=== PATIENT | male | born 1990 | race Hispanic/Latino ===

== ENCOUNTER 2018-06-13 15:01 | Emergency (ER) | payer MEDICAID ==
[2018-06-13] MEDS ORDERED: Sodium Chloride 0.9% 1,000 ML IV STA (15:36)
[2018-06-13 16:22] LABS: ALB/GLOB RATIO 1.5 (1.0-2.1); ALBUMIN 4.2 g/dL (3.5-5.0); ALT/SGPT 28 U/L (21-72); AST/SGOT 22 U/L (17-59); BLOOD UREA NITROGEN 14 mg/dl (9-20); CALCIUM 8.6 mg/dL (8.4-10.2); GFR AFRICAN-AMERICAN > 60; GFR NON-AFRICAN AMERICAN > 60
[2018-06-13 16:25] LABS: BASO % 0.2 % (0.0-2.0); EOS % 0.1 % (0.0-4.0); HEMOGLOBIN 14.9 g/dL (12.0-18.0); LYMPH # 0.6 K/uL (1.0-4.3); LYMPH % 8.3 % (20.0-40.0); MEAN CELL VOLUME 88.8 fl (80.0-94.0); MEAN CORPUSCULAR HEMOGLOBIN 29.9 pg (27.0-31.0); MEAN CORPUSCULAR HGB CONC 33.7 g/dL (33.0-37.0); MEAN PLATELET VOLUME 8.8 fl (7.2-11.7); MONO # 0.3 K/uL (0.0-0.8); MONO % 4.4 % (0.0-10.0); NEUT # 6.5 K/uL (1.8-7.0); PLATELET COUNT 163 K/uL (130-400); RBC 4.99 Mil/uL (4.40-5.90); RED CELL DISTRIBUTION WIDTH 13.8 % (11.5-14.5); WHITE BLOOD COUNT 7.4 K/uL (4.8-10.8)
--- NOTE | 2018-06-13 16:30 | ED PDOC ---
HPI:Nausea, Vomiting, Diarrhea Time Seen by Provider: 06/13/18 15:23 Chief Complaint (Nursing): Fever Chief Complaint (Provider): Diarrhea History Per: Patient History/Exam Limitations: no limitations Additional Complaint(s): Pt reports multiple episodes of nonbloody diarrhea since 6:30 AM today, associated with crampy abdominal pain and subjective fever. Pt had food poisoning while visiting [facility] one month ago but symptoms had resolved. Denies nausea, vomiting, dysuria, hematuria. Pt last ate roast beef sandwich last night. Past Medical History Reviewed: Nursing Documentation, Vital Signs Vital Signs: Last Vital Signs Temp 99.4 F 06/13/18 15:05 Pulse 63 06/13/18 15:05 Resp 18 06/13/18 15:05 BP 123/75 06/13/18 15:05 Pulse Ox 97 06/13/18 15:05 - Medical History PMH: No Chronic Diseases - Family History Family History: States: Unknown Family Hx - Living Arrangements Living Arrangements: With Family - Social History Current smoker - smoking cessation education provided: No Alcohol: None - Immunization History Hx Tetanus Toxoid Vaccination: No Hx Influenza Vaccination: No Hx Pneumococcal Vaccination: No - Home Medications Home Medications: Ambulatory Orders Medication Instructions Recorded Hydrocodone/Acetaminophen [Vicodin 1 each PO Q6 #12 tablet 02/05/16 5-300 mg Tablet] Ciprofloxacin [Cipro] 500 mg PO BID #19 tab 06/13/18 Dicyclomine [Bentyl] 20 mg PO QID PRN #10 tab 06/13/18 metroNIDAZOLE [Flagyl] 500 mg PO TID #29 tab 06/13/18 - Allergies Allergies/Adverse Reactions: Allergies Allergy/AdvReac Type Severity Reaction Status Date / Time No Known Allergies Allergy Verified 06/13/18 15:05 Review of Systems Constitutional: Positive for: Fever (Subjective). Negative for: Chills, Weakness, Malaise Cardiovascular: Negative for: Chest Pain Respiratory: Negative for: Cough, Shortness of Breath Gastrointestinal: Positive for: Abdominal Pain, Diarrhea. Negative for: Nausea , Vomiting, Melena, Hematochezia, Hematemesis, Rectal Pain Genitourinary Male: Negative for: Dysuria, Hematuria Musculoskeletal: Negative for: Back Pain Skin: Negative for: Rash, Lesions Neurological: Negative for: Headache, Dizziness Physical Exam - Reviewed Nursing Documentation Reviewed: Yes Vital Signs Reviewed: Yes - Physical Exam Appears: Positive for: Well, No Acute Distress Skin: Positive for: Normal Color, Warm, Dry Eye Exam: Positive for: Normal appearance, EOMI, PERRL Cardiovascular/Chest: Positive for: Regular Rate, Rhythm Respiratory: Positive for: Normal Breath Sounds. Negative for: Rales, Rhonchi, Wheezing Gastrointestinal/Abdominal: Positive for: Normal Exam, Bowel Sounds, Soft. Negative for: Tenderness, Guarding, Rebound Back: Positive for: Normal Inspection Extremity: Positive for: Normal ROM Neurologic/Psych: Positive for: Alert, Oriented - Laboratory Results Result Diagrams: 06/13/18 16:08 06/13/18 16:08 - ECG O2 Sat by Pulse Oximetry: 97 Medical Decision Making Medical Decision Makin yo male with diarrhea and abdominal pain. - labs - CT abd/pelvis - IVF - Bentyl Accession No. : [id number] Patient Name / ID : EDMAR LAMBERT / [id number] Exam Date : 06/13/2018 16:42:04 ( Approved ) Study Comment : Sex / Age : M / 27Y Creator : Dale Cornell MD Dictator : Dale Cornell MD Steel Welder : Head Control Clerk : Dale Cornell MD Approver2 : Report Date : 06/13/2018 17:29:19 My Comment : Date of service: 06/13/2018 PROCEDURE: CT Abdomen and Pelvis with contrast HISTORY: Abd pain, diarrhea COMPARISON: None. TECHNIQUE: Contrast dose: 95 mL Omnipaque 300 Radiation dose: Total exam DLP = 346.6 mGy-cm. This CT exam was performed using one or more of the following dose reduction techniques: Automated exposure control, adjustment of the mA and/or kV according to patient size, and/or use of iterative reconstruction technique. FINDINGS: LOWER THORAX: Unremarkable. LIVER: Unremarkable. No gross lesion or ductal dilatation. GALLBLADDER AND BILE DUCTS: Unremarkable. PANCREAS: Unremarkable. No gross lesion or ductal dilatation. SPLEEN: Unremarkable. ADRENALS: Unremarkable. No mass. KIDNEYS AND URETERS: Unremarkable. No hydronephrosis. No solid mass. VASCULATURE: Unremarkable. No aortic aneurysm. BOWEL: Thickening of the ascending colon, transverse and proximal descending colon. No obstruction. No gross mural thickening. APPENDIX: Normal appendix. PERITONEUM: Unremarkable. No free fluid. No free air. LYMPH NODES: Unremarkable. No enlarged lymph nodes. BLADDER: Unremarkable. REPRODUCTIVE: Unremarkable. BONES: No acute fracture. OTHER FINDINGS: None. IMPRESSION: Thickening from the distal ascending colon to the proximal descending colon compatible with infectious/inflammatory colitis. Disposition - Clinical Impression Clinical Impression: Colitis - Disposition Referrals: Helen Hodge APN [Family Provider] - Sixto Romo MD, PhD [Staff Provider] - Disposition: Routine/Home Disposition Time: 18:50 Condition: STABLE Prescriptions: Ciprofloxacin [Cipro] 500 mg PO BID #19 tab Dicyclomine [Bentyl] 20 mg PO QID PRN #10 tab PRN Reason: Pain, Moderate (4-7) metroNIDAZOLE [Flagyl] 500 mg PO TID #29 tab Instructions: Diarrhea in Adolescents and Adults Forms: [facility] (Korean)
[2018-06-13] MEDS ORDERED: Iohexol 300 100 ML IJ ONE (16:41)
[2018-06-13 16:50] LABS: URINE BILIRUBIN NEGATIVE (NEGATIVE); URINE BLOOD NEGATIVE (NEGATIVE); URINE CLARITY CLEAR (Clear); URINE COLOR YELLOW (YELLOW); URINE GLUCOSE (UA) NEG (Normal); URINE LEUKOCYTE ESTERASE NEG Leu/uL (Negative); URINE PROTEIN NEGATIVE (NEGATIVE); URINE UROBILINOGEN 0.2-1.0 mg/dL (0.2-1.0)
--- NOTE | 2018-06-13 17:30 | CT ---
Date of service: 06/13/2018 PROCEDURE: CT Abdomen and Pelvis with contrast HISTORY: Abd pain, diarrhea COMPARISON: None. TECHNIQUE: Contrast dose: 95 mL Omnipaque 300 Radiation dose: Total exam DLP = 346.6 mGy-cm. This CT exam was performed using one or more of the following dose reduction techniques: Automated exposure control, adjustment of the mA and/or kV according to patient size, and/or use of iterative reconstruction technique. FINDINGS: LOWER THORAX: Unremarkable. LIVER: Unremarkable. No gross lesion or ductal dilatation. GALLBLADDER AND BILE DUCTS: Unremarkable. PANCREAS: Unremarkable. No gross lesion or ductal dilatation. SPLEEN: Unremarkable. ADRENALS: Unremarkable. No mass. KIDNEYS AND URETERS: Unremarkable. No hydronephrosis. No solid mass. VASCULATURE: Unremarkable. No aortic aneurysm. BOWEL: Thickening of the ascending colon, transverse and proximal descending colon. No obstruction. No gross mural thickening. APPENDIX: Normal appendix. PERITONEUM: Unremarkable. No free fluid. No free air. LYMPH NODES: Unremarkable. No enlarged lymph nodes. BLADDER: Unremarkable. REPRODUCTIVE: Unremarkable. BONES: No acute fracture. OTHER FINDINGS: None. IMPRESSION: Thickening from the distal ascending colon to the proximal descending colon compatible with infectious/inflammatory colitis.
[2018-06-13] MEDS ORDERED: metroNIDAZOLE 500mg/100ml NS 100 ML IV STA (18:44)
[2018-06-13] MEDS ORDERED: Ciprofloxacin 400mg/200ml D5W 400 MG/200 ML BAG IV STA (18:44)
[2018-06-13 18:46] LABS: BANDS 3 % (0-2); LYMPHOCYTE 8 % (20-50); MONOCYTE 4 % (0-10); NEUTROPHIL 85 % (42-75); PLATELET ESTIMATE NORMAL (NORMAL); TOTAL CELLS COUNTED 100
[2018-06-13 18:47] LABS: ANISOCYTOSIS SLIGHT; LARGE PLATELETS PRESENT
[2018-06-13] MEDS ORDERED: Ciprofloxacin 400mg/200ml D5W 400 MG/200 ML BAG IVPB ONE (19:11)
[2018-06-13] MEDS ORDERED: metroNIDAZOLE 500mg/100ml NS 100 ML IVPB ONE (19:12)
[2018-06-13 20:41] VITALS: BP 120/70; PULSE 60; RESP 19; TEMP 98.6
[2018-06-15 09:41] VITALS: O2SAT 97
== END 2018-06-13 21:24 | disposition home or self-care (01) ==
LOC: H.ER 15:01
DX: K52.9 Noninfective gastroenteritis and colitis, unspecified (principal)
CPT/HCPCS: 74177; 80053; 81003; 85025; 87045; 96365; 96367; 99284; J0744; J7030; Q9967